=== PATIENT | male | born 1980 | race Caucasian/White ===

== ENCOUNTER 2019-11-21 | Emergency (ER) | payer SELFPAY | END 2019-11-21 18:25 | disposition short-term general hospital (02) | DX: S01.111A Laceration without foreign body of right eyelid and periocular area, initial encounter (principal); W20.8XXA Other cause of strike by thrown, projected or falling object, initial encounter; Y93.89 Activity, other specified; F17.200 Nicotine dependence, unspecified, uncomplicated; Y92.89 Other specified places as the place of occurrence of the external cause ==